=== PATIENT | male | born 1995 | race Caucasian/White ===

== ENCOUNTER 2017-02-11 17:56 | Emergency (ER) | payer OTHER ==
[2017-02-11 19:40] VITALS: BP 131/79
== END 2017-02-11 19:40 | disposition home or self-care (01) ==
LOC: ED 17:56
DX: S91.332A Puncture wound without foreign body, left foot, initial encounter (principal); L03.116 Cellulitis of left lower limb; W22.8XXA Striking against or struck by other objects, initial encounter; Y93.89 Activity, other specified; Y92.832 Beach as the place of occurrence of the external cause; Y99.8 Other external cause status
CPT/HCPCS: 90715; J3490